=== PATIENT | female | born 1965 | race Caucasian/White ===

== ENCOUNTER 2019-09-30 16:49 | Emergency (ER) | payer MEDICARE ==
[~2019-09-30] VITALS: Ht 163.8 cm; Wt 69.0 kg
[~2019-09-30 16:49] MED LIST: ALPR-624 PO; CITA40TA22 PO; FLUT16SP26 NS; LEVO25TA7 PO
--- NOTE | 2019-09-30 17:15 | NUR ---
PT MOVED FROM HALLWAY TO ROOM6
--- NOTE | 2019-09-30 17:45 | NUR ---
DR GRIMESFS AT BEDSIDE
[2019-09-30] MEDS ORDERED: mag hydrox/Alum hydrox/simeth 30ml oral suspension PO ONE (17:50)
[2019-09-30 18:00] LABS: BASOPHILS # (AUTO) 0.1 X10'3 (0-0.2); EOSINOPHILS # (AUTO) 0.1 X10'3 (0-0.9); EOSINOPHILS % (AUTO) 2.1 % (0-6); HEMATOCRIT 43.2 % (35.0-45.0); HEMOGLOBIN 14.4 g/dl (12.0-16.0); LYMPHOCYTES # (AUTO) 2.2 X10'3 (1.1-4.8); LYMPHOCYTES % (AUTO) 42.4 % (21-51); MEAN CORPUSCULAR HEMOGLOBIN 30.2 PG (27.0-31.0); MEAN CORPUSCULAR HGB CONC 33.3 g/dL (33.0-36.5); MEAN CORPUSCULAR VOLUME 90.7 FL (78-98); MONOCYTES # (AUTO) 0.3 X10'3 (0-0.9); MONOCYTES % (AUTO) 5.9 % (2-12); NEUTROPHILS # (AUTO) 2.6 X10'3 (1.8-7.7); NEUTROPHILS % (AUTO) 48.6 % (42-75); PLATELET COUNT 257 X10'3 (140-440); RED BLOOD COUNT 4.76 X10'6 (4.20-5.60); RED CELL DISTRIBUTION WIDTH 12.2 % (11.5-14.5); WHITE BLOOD COUNT 5.3 X10'3 (4.5-11.0)
[2019-09-30 18:13] LABS: ALANINE AMINOTRANSFERASE 30 U/L (12-78); ALBUMIN 3.8 G/DL (3.4-5.0); ALBUMIN/GLOBULIN RATIO 1.1 (1.1-1.5); ALKALINE PHOSPHATASE 60 IU/L (46-116); ANION GAP 11 (8-16); ASPARTATE AMINO TRANSFERASE 23 U/L (10-37); BILIRUBIN,TOTAL 0.2 MG/DL (0.1-1.0); BLOOD UREA NITROGEN 9 MG/DL (7-18); BUN/CREATININE RATIO 10.8 (6.6-38.0); CHLORIDE 101 MMOL/L (99-107); CREATININE 0.83 MG/DL (0.40-0.90); GLUCOSE 94 MG/DL (70-104); POTASSIUM 3.8 MMOL/L (3.5-5.1); SODIUM 137 MMOL/L (135-145); TOTAL CARBON DIOXIDE 25.1 MMOL/L (24-32); TOTAL PROTEIN 7.4 G/DL (6.4-8.2); eGFR 72 ML/MIN
[2019-09-30 18:19] LABS: MAGNESIUM 1.9 MG/DL (1.5-2.4)
[2019-09-30 18:51] VITALS: BP 141/68
--- NOTE | 2019-09-30 18:51 | NUR ---
PT IS RESTING QUIETLY ON GURNEY, "I AM READY TO HOME"
== END 2019-09-30 19:04 | disposition home or self-care (01) ==
LOC: ER 16:50
DX: R07.89 Other chest pain (principal); Z72.89 Other problems related to lifestyle; Z90.710 Acquired absence of both cervix and uterus; Z88.5 Allergy status to narcotic agent; Z79.899 Other long term (current) drug therapy
CPT/HCPCS: 36415; 71045; 80053; 83735; 83880; 84484; 85025; 93005; 99285

== ENCOUNTER 2021-07-09 17:53 | Emergency (ER) | payer MEDICARE ==
[~2021-07-09] VITALS: Ht 162.6 cm; Wt 72.7 kg
[2021-07-09 18:24] VITALS: BP_DIAS 88
[2021-07-09] MEDS ORDERED: acetaminophen 325mg tablet PO ONE (19:15)
[2021-07-09] MEDS ORDERED: hyDRALAzine 10mg tablet PO ONE (20:15)
[2021-07-09 20:23] VITALS: BP_SYST 181
== END 2021-07-09 20:25 ==
LOC: EEVIPCON 17:54 → ER 17:54
DX: M54.2 Cervicalgia (principal); Y04.8XXA Assault by other bodily force, initial encounter; Y93.89 Activity, other specified; Y92.89 Other specified places as the place of occurrence of the external cause; Y99.8 Other external cause status
CPT/HCPCS: 70450; 72125; 99284

== ENCOUNTER 2022-09-19 05:32 | Emergency (ER) | payer MEDICARE ==
[~2022-09-19] VITALS: Ht 162.6 cm; Wt 68.2 kg
[2022-09-19 05:45] VITALS: BP 187/91
[2022-09-19] MEDS ORDERED: cyclobenzaprine 10mg tablet PO ONE (05:45)
[2022-09-19] MEDS ORDERED: orphenadrine citrate 60mg/2ml inj. IM ONE ×2 (05:45→06:48)
[2022-09-19] MEDS ORDERED: triamcinolone acetonide 40mg/ml inj IM ONE (05:45)
[2022-09-19] MEDS ORDERED: HYDROcodone/acetaminophen 10/325mg tab PO ONE (05:45)
[2022-09-19] MEDS ORDERED: NAPR-56 PO (05:50)
[2022-09-19] MEDS ORDERED: CYCL-1 PO (05:50)
[2022-09-19] MEDS ORDERED: HYDR-3972 PO (05:50)
== END 2022-09-19 07:13 | disposition home or self-care (01) ==
LOC: ER 05:32
DX: M54.40 Lumbago with sciatica, unspecified side (principal); Z88.5 Allergy status to narcotic agent; Z88.8 Allergy status to other drugs, medicaments and biological substances; Z90.710 Acquired absence of both cervix and uterus
CPT/HCPCS: 96372; 99284; J2360; J3301